=== PATIENT | female | born 1945 | race African-American/Black ===

== ENCOUNTER 2018-10-31 02:03 | Emergency (ER) | payer MEDICARE, MEDICAID ==
[~2018-10-31] VITALS: Ht 157.5 cm; Wt 59.0 kg
[2018-10-31] MEDS ORDERED: ASPIR 8181 MG ORAL (02:10)
[2018-10-31] MEDS ORDERED: SENNA8.6 M2 PO (02:11)
[2018-10-31] MEDS ORDERED: OS-CAL 500+D31 EAC1 PO (02:11)
[2018-10-31] MEDS ORDERED: DOCUSATE SODIU100 MG ORAL (02:11)
[2018-10-31] MEDS ORDERED: ADRENOID CAPSU1 EACH PO (02:13)
[2018-10-31] MEDS ORDERED: AMLODIPINE BESY10 MG ORAL (02:13)
[2018-10-31] MEDS ORDERED: EMERGEN-C 500500 MG PO (02:13)
[2018-10-31] MEDS ORDERED: ZEGERID 20 MG1 EACH ORAL (02:14)
[2018-10-31] MEDS ORDERED: LABETALOL H5 MG/1 M1 ORAL (02:14)
[2018-10-31] MEDS ORDERED: FOSAMAX70 MG ORAL (02:15)
[2018-10-31] MEDS ORDERED: JEVITY 1.5 CA1000 ML PO (02:15)
[2018-10-31] MEDS ORDERED: CATAPRES0.1 MG ORAL (02:16)
[2018-10-31] MEDS ORDERED: ACETAMINOPHEN500 M5 ORAL (02:16)
[2018-10-31 02:20] VITALS: BP 127/81
--- NOTE | 2018-10-31 02:38 | NUR ---
ED Nurse Note: Patient was BIBA fron SNF c/o malfunctioning of G-Ture since 11pm. Patient is non-verbal, AAO x1, VSS at this time, skin is dry warm to touch.
--- NOTE | 2018-10-31 03:03 | Emergency Room Report ---
History of Present Illness General Chief Complaint: Malfunctioning Gastric Tube Source: Patient, EMS Present Illness HPI Patient is a 73-year-old female sent in by nursing facility for malfunctioning G -tube. Patient is G-tube reportedly been clogged. Patient was noted to be G- tube dependent. She had chronic history of cognitive impairment. She was not noted to be any acute distress was brought in by EMS for evaluation and replacement of G-tube Allergies: Coded Allergies: No Known Allergies (Unverified , 10/31/18) Patient History Past Medical History: see triage record Reviewed Nursing Documentation: PMH: Agreed; PSxH: Agreed Nursing Documentation-PMH Hx Gastrointestinal Problems: Yes - G-Tube,dysphagia,aphasia History Of Psychiatric Problem: Yes - dementia Review of Systems All Other Systems: limited - Review of systems: Review systems is limited by patient's being a poor historian Physical Exam Vital Signs Date Time Temp Pulse Resp B/P (MAP) Pulse Ox O2 Delivery O2 Flow Rate FiO2 10/31/18 02:04 98.1 101 18 127/81 (96) 95 Room Air General Appearance: alert, Chronically Ill ENT: moist mucus membranes Neck: limited range of motion Respiratory: lungs clear Cardiovascular #1: normal peripheral pulses, regular rate, rhythm Gastrointestinal: other - G-tube site with some granulation tissue. There is no erythema or bleeding. Neurologic: alert, motor weakness Psychiatric: depressed affect Skin: no rash Medical Decision Making Diagnostic Impression: Primary Impression: Malfunction of gastrostomy tube ER Course Patient presented for G-tube replacement. Gastrostomy tube was replaced with sterile technique with a 16 [place] G-tube secured to 3.5 cm. Post procedure x- ray showed adequate gastrostomy tube placement. Patient tolerated well without complications. Post procedure Xray showed adequate gtube placement. The patient was discharged back to [facility] via [facility].. Patient was return for persistent vomiting, other concerns. Last Vital Signs Date Time Temp Pulse Resp B/P (MAP) Pulse Ox O2 Delivery O2 Flow Rate FiO2 10/31/18 02:20 98.1 18 127/81 95 Room Air 10/31/18 02:04 101 Status: improved Disposition: [facility] SN[facility] Condition: Stable Sarwat Hanson MD Oct 31, 2018 03:03
--- NOTE | 2018-10-31 03:04 | NUR ---
ED Nurse Note: G-tube was replaced by Dr. Hanson, 16 F. Patient tolerated procedure well.
--- NOTE | 2018-10-31 04:32 | Diagnostic Imaging Report ---
EXAM: XR Abdomen, 2 Views CLINICAL HISTORY: TUBE PLCMT TECHNIQUE: Frontal view of the abdomen/pelvis with upright view of the abdomen. COMPARISON: No relevant prior studies available. FINDINGS: See Impression. IMPRESSION: 1. Contrast administered via a PEG tube fills the stomach. Small amount of reflux into the esophagus with possible presence of a small hiatal hernia. No extraluminal or intraperitoneal contrast identified. 2. No bowel obstruction.
[2018-10-31 05:45] VITALS: BP 127/81
--- NOTE | 2018-10-31 06:23 | NUR ---
ED Nurse Note: Patient was transfered back to the facility via [facility], by BLS protocol. with all belongings. Patient AAO x0, VSS at this time.
== END 2018-10-31 05:45 ==
LOC: EDBD 02:03 → EMR 02:22
DX: K94.23 Gastrostomy malfunction (principal); F03.90 Unspecified dementia, unspecified severity, without behavioral disturbance, psychotic disturbance, mood disturbance, and anxiety
CPT/HCPCS: 74018; 99283